=== PATIENT | female | born 1980 | race Caucasian/White ===

== ENCOUNTER → 2024-06-13 08:13 | Outpatient (REF) | payer OTHER, SELFPAY | LOC: WDC 08:13 | PROVIDERS: ATTENDING PHYSICIAN Obstetrics & Gynecology; FAMILY PHYSICIAN Nurse Practitioner Adult Health | DX: Z12.31 Encounter for screening mammogram for malignant neoplasm of breast (principal) | CPT/HCPCS: 77063; 77067 ==

== ENCOUNTER → 2024-08-11 12:50 | Outpatient (REF) | payer OTHER, SELFPAY | LOC: WDC 12:50 | PROVIDERS: ATTENDING PHYSICIAN Obstetrics & Gynecology; FAMILY PHYSICIAN Nurse Practitioner Adult Health | DX: R92.30 Dense breasts, unspecified (principal); R92.2 Inconclusive mammogram | CPT/HCPCS: 76641 ==